=== PATIENT | male | born 1935 | race Caucasian/White ===

== ENCOUNTER 2016-12-10 20:16 | Emergency (ER) | payer MEDICARE, OTHER ==
[~2016-12-10] VITALS: Ht 170.2 cm; Wt 87.9 kg
[~2016-12-10 20:16] MED LIST: AMLO10TA62 PO; ASPI-730 PO; FINA5TAB40 PO; FISH1CAP29 PO; GLUC15002 PO; HYDR-2164 PO; LORA-326 PO; METO-64 PO; MULT-806 PO; NIAC500T68 PO; PRAV40TA44 PO; RANI75TA PO; TERA1CAP PO
[2016-12-10 20:20] VITALS: Ht 170.2 cm; Wt 87.9 kg
--- OUTSIDE RECORDS SUMMARY | 2016-12-10 20:27 | XMS REPORT | Referral Summary ---
Author Author [facility] Organization [facility] Address Unknown Phone Unavailable Care Team Providers Care Rail Signal Mechanic Name Role Phone Arti Delacruz Primary Care Physician [phone] Encounter VC Date(s): 06/27/15 - 06/27/15 [facility] [address] [place] [id number] Discharge Disposition: 01-Home or Self Care Attending Physician: Link Batista MD Admitting Physician: Link Batista MD Vital Signs No data available for this section Problem List Condition Effective Dates Status Health Status Informant Allergic Active rhinitis(Confirmed) Hay fever(Confirmed) < 05/09/14 Resolved Angina/chest < 05/09/14 Resolved pain(Confirmed) Coronary Active arteriosclerosis (disorder)(Confirmed ) Coronary artery < 05/09/14 Resolved disease(Confirmed) Diabetes(Confirmed) < 05/09/14 Resolved Essential Active hypertension (disorder)(Confirmed ) Esophageal < 05/09/14 Resolved reflux(Confirmed) History of < 05/09/14 Resolved measles(Confirmed) History of chronic Active urticaria(Confirmed) Hearing problem Active (finding)(Confirmed) History of colon Active polyps(Confirmed) Hyperlipidemia(Confi < 05/09/14 Resolved rmed) Hypertension(Confirm < 05/09/14 Resolved ed) Obesity(Confirmed) Active patient Prostatism(Confirmed < 05/09/14 Resolved ) Pure Resolved hypercholesterolemia (disorder)(Confirmed ) Chicken < 10/29/15 Resolved pox(Confirmed) Allergies, Adverse Reactions, Alerts Substance Reaction Severity Status meloxicam Hives Active Medications amLODIPine 10 mg oral tablet See Instructions, Take 1/2 tablet by mouth daily, # 45 unknown unit, 2 Refill( s), eRx: [facility], Take 1/2 tablet by mouth daily Start Date: 04/04/15 Status: Ordered aspirin 81 mg oral tablet 81 mg 1 tabs, Oral, Daily, # 30 tabs, 0 Refill(s), other reason (Rx) Start Date: 06/27/15 Status: Ordered Claritin 10 mg, Oral, Daily, as needed for allergy symptoms, 0 Refill(s) Start Date: 05/10/14 Status: Ordered finasteride 5 mg oral tablet See Instructions, Take 1 tablet by mouth at bedtime, # 90 tabs, 1 Refill(s), eRx: [facility], Take 1 tablet by mouth at bedtime Start Date: 10/14/15 Status: Ordered Fish Oil 1000 mg oral capsule 1 caps, Oral, Daily, 0 Refill(s) Start Date: 05/10/14 Status: Ordered Glucometer strips (DME) DME Item [facility], See Instructions, # 1 Each, 1 Refill(s), Pharmacy: [facility] #[id number], [facility], Supply Start Date: 02/28/14 Status: Ordered hydrochlorothiazide 25 mg oral tablet See Instructions, Take 1 tablet by mouth daily, # 90 tabs, 1 Refill(s), eRx: [facility], Take 1 tablet by mouth daily Start Date: 10/14/15 Status: Ordered Metoprolol Tartrate 25 mg oral tablet See Instructions, Take 1 tablet by mouth twice a day, # 180 tabs, 1 Refill(s), eRx: [facility], Take 1 tablet by mouth twice a day Start Date: 10/14/15 Status: Ordered multivitamin Daily, 0 Refill(s) Start Date: 05/10/14 Status: Ordered Niaspan ER 500 mg oral tablet, extended release See Instructions, Take 2 tablets by mouth daily, # 180 tabs, 1 Refill(s), eRx: [facility], Take 2 tablets by mouth daily Start Date: 10/14/15 Status: Ordered Niaspan ER 500 mg oral tablet, extended release 1 tabs, Oral, Bedtime (once a day), 0 Refill(s) Start Date: 05/10/14 Status: Ordered Pravachol 40 mg oral tablet See Instructions, Take 1 tablet by mouth every day, # 90 tabs, 1 Refill(s), eRx : [facility], Take 1 tablet by mouth every day Start Date: 10/14/15 Status: Ordered terazosin 1 mg oral capsule See Instructions, Take 1 capsule by mouth at bedtime, # 90 caps, 1 Refill(s), eRx: [facility], Take 1 capsule by mouth at bedtime Start Date: 10/14/15 Status: Ordered warfarin 2 mg oral tablet 4 mg 2 tabs, Oral, Daily, # 180 tabs, 3 Refill(s), Pharmacy: [facility], 2 tabs Oral Daily Start Date: 10/15/15 Status: Ordered Zantac 150 150 mg, Oral, Daily, Abdominal Cramping, 0 Refill(s) Start Date: 05/10/14 Status: Ordered Results No data available for this section Immunizations Vaccine Date Refusal Reason tetanus/diphth/pertuss (Tdap) adult/adol 10/29/15 influenza virus vaccine, inactivated 08/20/15 influenza virus vaccine, live 07/04/12 pneumococcal 13-valent conjugate vaccine 10/29/15 tetanus-diphth toxoids (Td) adult/adol 02/27/05 Procedures Procedure Date Related Diagnosis Body Site Colonoscopies 2010 WNL 2006 WNL, REPEAT 5YRS. 07/22/11 2003-TUB ADENOMA, REPEAT 2 YRS. cataract left 2010 cataract right 2010 HERNIA 2002 GALL BLADDER W/STONES 1981 Vasectomy 1972 Appendectomy 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
--- OUTSIDE RECORDS SUMMARY | 2016-12-10 20:27 | XMS REPORT | Referral Summary ---
Author Author [facility] Organization [facility] Address Unknown Phone Unavailable Care Team Providers Care And Taxi Instructor Bus Trolley Name Role Phone Arti Delacruz Primary Care Physician [phone] Encounter VC Date(s): 07/16/15 - 07/16/15 [facility] [address] [place] [address] [place] Ojeda [address] Discharge Diagnosis: BPH with obstruction/lower urinary tract symptoms Discharge Diagnosis: Atrial fibrillation Discharge Diagnosis: Type II diabetes mellitus Discharge Diagnosis: GERD without esophagitis Discharge Disposition: 01-Home or Self Care Attending Physician: Kemar Clark JR, MD Admitting Physician: Kemar Clark JR, MD Vital Signs Most recent to 1 oldest [Reference Range]: Peripheral Pulse 72 bpm Rate [60-100 bpm] (07/16/15 9:08 AM) Blood Pressure 116/72 mmHg [90-140/60-90 mmHg] (07/16/15 9:08 AM) Problem List Condition Effective Dates Status Health Status Informant Allergic Active rhinitis(Confirmed) Hay fever(Confirmed) Active Angina/chest Active pain(Confirmed) Coronary Active arteriosclerosis (disorder)(Confirmed ) Coronary artery Active disease(Confirmed) Diabetes(Confirmed) Active Essential Active hypertension (disorder)(Confirmed ) Esophageal Active reflux(Confirmed) History of Active measles(Confirmed) History of chronic Active urticaria(Confirmed) Hearing problem Active (finding)(Confirmed) History of colon Active polyps(Confirmed) Hyperlipidemia(Confi Active rmed) Hypertension(Confirm Active ed) Obesity(Confirmed) Active patient Prostatism(Confirmed Active ) Pure Active hypercholesterolemia (disorder)(Confirmed ) Chicken Active pox(Confirmed) Allergies, Adverse Reactions, Alerts Substance Reaction [...] by mouth at bedtime, # 90 tabs, eRx: [facility], Take 1 tablet by mouth at bedtime Start Date: 07/03/15 Status: Ordered Fish Oil 1000 mg oral capsule 1 caps, Oral, Daily, 0 Refill(s) Start Date: 05/10/14 Status: Ordered Glucometer strips (DME) DME Item [facility]IME, See Instructions, # 1 Each, 1 Refill(s), Pharmacy: [facility] #[id number], LIFETIME, Supply Start Date: 02/28/14 Status: Ordered hydrochlorothiazide 25 mg oral tablet See Instructions, Take 1 tablet by mouth daily, # 90 tabs, eRx: [facility], Take 1 tablet by mouth daily Start Date: 07/03/15 Status: Ordered Metoprolol Tartrate 25 mg oral tablet See Instructions, Take 1 tablet by mouth twice a day, # 180 tabs, eRx: [facility], Take 1 tablet by mouth twice a day Start Date: 07/03/15 Status: Ordered multivitamin Daily, 0 Refill(s) Start Date: 05/10/14 Status: Ordered Niaspan ER 500 mg oral tablet, extended release See Instructions, Take 2 tablets by mouth daily, # 180 tabs, eRx: [facility], Take 2 tablets by mouth daily Start Date: 07/03/15 Status: Ordered Niaspan ER 500 mg oral tablet, extended release 1 tabs, Oral, Bedtime (once a day), 0 Refill(s) Start Date: 05/10/14 Status: Ordered Pravachol 40 mg oral tablet See Instructions, Take 1 tablet by mouth every day, # 90 tabs, eRx: [facility], Take 1 tablet by mouth every day Start Date: 07/03/15 Status: Ordered terazosin 1 mg oral capsule See Instructions, Take 1 capsule by mouth at bedtime, # 90 caps, eRx: [facility], Take 1 capsule by mouth at bedtime Start Date: 07/03/15 Status: Ordered warfarin 2 mg oral tablet 4 mg 2 tabs, Oral, Daily, # 60 tabs, 6 Refill(s), Pharmacy: [facility] # [id number], 2 tabs Oral Daily Start Date: 06/27/15 Status: Ordered Zantac 150 150 mg, Oral, Daily, Abdominal Cramping, 0 Refill(s) Start Date: 05/10/14 Status: Ordered Results No data available for this section Immunizations Vaccine Date Refusal Reason influenza virus vaccine, live 07/04/12 tetanus-diphth toxoids (Td) adult/adol 02/27/05 Procedures Procedure Date Related Diagnosis Body Site Colonoscopies 2010 WNL 2006 WNL, REPEAT 5YRS. 07/22/11 2003-TUB ADENOMA, REPEAT 2 YRS. cataract left 2010 cataract right 2010 HERNIA 2002 GALL BLADDER W/STONES 1981 Vasectomy 1971 Appendectomy 1962 cardiac bypass 3 vessels Social History Social History Type Response Smoking Status Never smoker Assessment and Plan Extracted from: Title: Ambulatory Patient Education Author: Kemar Clark JR, MD Date : 07/16/15 Follow Up With: Where: When: Mc Delacruz [address] [place] [address] Drive; [place] [address] Business (1) Within 3 to 5 days Comments: Follow Up With: Where: When: Kemar [address]; [place] [address] Business (1) In 1 year 07/16/2016 Comments: Extracted from: Title: Office Visit Note Author: Kemar Clark JR, MD Date: 07/16/15 Assessment/Plan 1.BPH with obstruction/lower urinary tract symptoms continue finasteride and Terazosin 2.Atrial fibrillation under the care of his PSA and recently been taking warfarin 3.Type II diabetes mellitus under the care of his PCP taking medications for type II diabetes mellitus 4.GERD without esophagitis continue taking medication for GERD. I would like to see him again in a year. His most recent PSA is 1.4. PSA a week before next visit. Ordered: Office Visit Level 3 Est [address]
--- OUTSIDE RECORDS SUMMARY | 2016-12-10 20:28 | XMS REPORT | Referral Summary ---
Author Author [facility] Organization [facility] Address Unknown Phone Unavailable Care Team Providers Care Coal Washer Tender Name Role Phone Arti Delacruz Primary Care Physician [phone] Encounter VC Date(s): 07/16/15 - 07/16/15 [facility] [address] [place] [address] [place] O[place]eda [address] Discharge Diagnosis: BPH with obstruction/lower urinary [...] 1/2 tablet by mouth daily, # 45 tabs, eRx: [facility], Take 1/2 tablet by mouth daily Start Date: 01/07/16 Status: Ordered aspirin 81 mg oral tablet [...] Instructions, # 1 Each, 1 Refill(s), Pharmacy: [facility] #[id number], [place]ET[facility], Supply Start Date: 02/28/14 Status: Ordered [...] Daily, # 180 tabs, 3 Refill(s), Pharmacy: [facility], 2 tabs Oral Daily Start [...] right 2010 HERNIA 2002 GALL BLADDER W/STONES 1982 Vasectomy 1972 Appendectomy 1963 cardiac bypass 3 vessels Social History Social History Type Response Smoking Status Never smoker Assessment and Plan Extracted from: Title: Ambulatory Patient Education Author: Kemar Clark JR, MD Date : 07/16/15 Follow Up With: Where: When: Mc Delacruz [address] [place] [address] Drive; [place] [address] Business (1) Within 3 to 5 days Comments: Follow Up With: Where: When: Kemar Clark [address] [place] [address] Drive; [place] [address] Business (1) In 1 year [...] visit. Ordered: Office Visit Level 3 Est [address]
--- OUTSIDE RECORDS SUMMARY | 2016-12-10 20:28 | XMS REPORT | Referral Summary ---
Author Author [facility] Organization [facility] Address Unknown Phone Unavailable Care Team Providers Care [employer] Dean Name Role Phone Arti Delacruz Primary Care Physician [phone] Encounter Date(s): 05/29/15 - 05/29/15 [facility] [address] [place] [address] [place] [address]- Discharge Diagnosis: Solar keratosis Discharge Diagnosis: Coronary heart disease Discharge Diagnosis: Effort angina Discharge Diagnosis: Essential hypertension Discharge Diagnosis: H/O coronary artery bypass surgery Discharge Diagnosis: High cholesterol Discharge Disposition: 01-Home or Self Care Attending Physician: Link Batista MD Admitting Physician: Link Batista MD Referring Physician: Mc Delacruz MD Vital Signs Most recent to 1 oldest [Reference Range]: Peripheral Pulse 72 bpm Rate [60-100 bpm] (05/29/15 11:21 AM) Blood Pressure 110/60 mmHg [90-140/60-90 mmHg] (05/29/15 11:21 AM) Problem List Condition Effective Dates Status [...] Instructions, # 1 Each, 1 Refill(s), Pharmacy: [facility] #[id number], [place], Supply Start Date: 02/28/14 Status: Ordered [...] Daily, # 60 tabs, 6 Refill(s), Pharmacy: [facility] # [id number], 2 tabs Oral Daily Start Date: 06/27/15 Status: Ordered Zantac 150 150 mg, Oral, Daily, Abdominal Cramping, 0 Refill(s) Start Date: 05/10/14 Status: Ordered Results No data available for this section Immunizations Vaccine Date Refusal Reason influenza virus vaccine, live 07/04/12 tetanus-diphth toxoids (Td) adult/adol 02/27/05 Procedures Procedure Date Related Diagnosis Body Site Colonoscopies 2010 WNL 2006 WNL, REPEAT 5YRS. 07/22/112002-TUB ADENOMA, REPEAT 2 YRS. cataract left 2010 cataract right 2010 HERNIA 2002 GALL BLADDER W/STONES 1981 Vasectomy 1971 Appendectomy 1962 cardiac bypass 3 vessels Social History Social History Type Response Smoking Status Never smoker Assessment and Plan Extracted from: Title: Office Visit Note Author: Link Batista MD Date: 05/29/15 Assessment/Plan 1.Coronary heart disease Ordered: Internal Referral to Dermatology Request for Service - Misc. Return to Clinic 2.H/O coronary artery bypass surgery Ordered: Internal Referral to Dermatology Request for Service - Misc. Return to Clinic 3.Effort angina Discussion overall, this gentleman seems to be getting along very well. In view of his increasing symptoms of angina, we will do a stress test this year. He is to call us if he has symptomsof decliningin the meantime. Time of visit about 25 minutes. Ordered: Internal Referral to Dermatology Request for Service - Misc. Return to Clinic 4.High cholesterol Ordered: Internal Referral to Dermatology Request for Service - Misc. Return to Clinic 5.Essential hypertension Ordered: Internal Referral to Dermatology Request for Service - Misc. Return to Clinic 6.Solar keratosis Ordered: Internal Referral to Dermatology Request for Service - Misc. Return to Clinic Referrals to Other Providers Referred by: Link Batista MD solar keratosis Referred by: Link Batista MD
--- OUTSIDE RECORDS SUMMARY | 2016-12-10 20:28 | XMS REPORT | Referral Summary ---
Author Author [facility] Organization [facility] Address Unknown Phone Unavailable Care Team Providers Care Bicycle Subassembler Name Role Phone Arti Delacruz Primary Care Physician [phone] Encounter Date(s): 07/03/15 - 07/03/15 [facility] [address] [place] [address] [place] [id number] Discharge Diagnosis: H/O coronary artery bypass surgery Discharge Diagnosis: Atrial flutter Discharge Diagnosis: Coronary heart disease Discharge Disposition: 01-Home or Self Care Attending Physician: Link Batista MD Admitting Physician: Link Batista MD Referring Physician: Mc Delacruz MD Vital Signs Most recent to 1 oldest [Reference Range]: Peripheral Pulse 76 bpm Rate [60-100 bpm] (07/03/15 11:54 AM) Blood Pressure 134/76 mmHg [90-140/60-90 mmHg] (07/03/15 11:54 AM) Problem List Condition Effective Dates Status [...] Instructions, # 1 Each, 1 Refill(s), Pharmacy: [facility] #[id number], [facility], Supply Start Date: 02/28/14 Status: Ordered [...] Daily, # 180 tabs, 3 Refill(s), Pharmacy: [facility], 2 tabs Oral Daily Start [...] Visit Note Author: Link Batista MD Date: 07/03/15 Assessment/Plan 1.Atrial flutter 2.Coronary heart disease 3.H/O coronary artery bypass surgery Discussion:The patient was accompanied by his on this visit. We reviewedthe cardiac conduction system and discussed the atrial fibrillation and atrial flutter. We advised him that his heart rate is satisfactorily controlled on his current medications. We discussed the importance of anticoagulant therapy to reduce the chance of systemicor central embolization. We also discussed some elements of anticoagulant therapy, reviewing information fromthe visit with child. Time of visit today approximately 40 minutes. A follow-up visit was arranged. He was encouraged to call any time as necessary. We will continue to beinvolved in his anticoagulation. I thought that his rhythm had gone back to normal butAn EKG demonstrates that it is atrial flutter with 4to1 conduction
--- OUTSIDE RECORDS SUMMARY | 2016-12-10 20:28 | XMS REPORT | Referral Summary ---
Author Author [facility] Organization [facility] Address Unknown Phone Unavailable Care Team Providers Care Medical Lab Technician Name Role Phone Arti Delacruz Primary Care Physician [phone] Encounter [facility] [id number] Date(s): 05/17/15 - 05/17/15 [facility], [address] [place] [address] Discharge Diagnosis: Essential hypertension Discharge Diagnosis: Hyperlipidemia Discharge Diagnosis: Coronary arteriosclerosis Discharge Diagnosis: Diabetes Discharge Disposition: 01-Home or Self Care Attending Physician: Mc Delacruz MD Admitting Physician: Mc Delacruz MD Referring Physician: Mc Delacruz MD Vital Signs Most recent to 1 oldest [Reference Range]: Temperature Tympanic 36.1 degC [36.6-38.1 degC] *LOW* (05/17/15 8:25 AM) Peripheral Pulse 64 bpm Rate [60-100 bpm] (05/17/15 8:25 AM) Blood Pressure 116/50 mmHg [90-140/60-90 mmHg] (05/17/15 8:25 AM) Problem List Condition Effective Dates Status [...] Instructions, # 1 Each, 1 Refill(s), Pharmacy: [facility] #[id number], [place], Supply Start Date: 02/28/14 Status: Ordered [...] smoker Assessment and Plan Extracted from: Title: CDM DM Author: Mc Delacruz MD Date: 05/17/15 Assessment/Plan Coronary arteriosclerosis Overall seems to have stable angina associated with exertion. We discussed the importance of immediate follow-up if this develops a pattern suggestive of unstable angina. Otherwise follow-up with Dr. Batista as already planned. Diabetes Continue present care. Essential hypertension Continue current care. Hyperlipidemia Continue current medications. Encourage lifestyle efforts. Follow-up 3 months. Labs anticipated that time to include A1c and BMP.
--- OUTSIDE RECORDS SUMMARY | 2016-12-10 20:28 | XMS REPORT | Referral Summary ---
Author Author [facility] Organization [facility] Address Unknown Phone Unavailable Care Team Providers Care [employer] Manager Name Role Phone Arti Delacruz Primary Care Physician [phone] Encounter Date(s): 05/29/15 - 05/29/15 [facility] [address] [place] [address] [place] [address]- Discharge Diagnosis: Solar keratosis Discharge Diagnosis: Coronary [...] Instructions, # 1 Each, 1 Refill(s), Pharmacy: [facility] #[id number], [place], Supply Start Date: 02/28/14 Status: Ordered [...] Daily, # 60 tabs, 6 Refill(s), Pharmacy: [facility] # [id number], 2 tabs Oral Daily Start Date: 06/27/15 [...]
--- OUTSIDE RECORDS SUMMARY | 2016-12-10 20:28 | XMS REPORT | Referral Summary ---
Author Author [facility] Organization [facility] Address Unknown Phone Unavailable Care Team Providers Care Gas Welder Apprentice Name Role Phone Arti Delacruz Primary Care Physician [phone] Encounter Date(s): 05/29/15 - 05/29/15 [facility] [address] [place] [address] [place] Ojeda [id number] Discharge Diagnosis: Solar keratosis Discharge Diagnosis: Coronary heart disease Discharge Diagnosis: Effort angina Discharge Diagnosis: Essential hypertension Discharge Diagnosis: H/O coronary artery bypass surgery Discharge Diagnosis: High cholesterol Discharge Disposition: -Home or Self Care Attending Physician: Link Batista [...] Pure Resolved hypercholesterolemia (disorder)(Confirmed ) Chicken < 2/2/16 Resolved pox(Confirmed) Allergies, Adverse Reactions, Alerts Substance [...] Instructions, # 1 Each, 1 Refill(s), Pharmacy: [facility] #[id number], [place], Supply Start Date: 02/28/14 Status: Ordered [...] Daily, # 180 tabs, 3 Refill(s), Pharmacy: [facility], 2 tabs Oral Daily Start [...]
--- OUTSIDE RECORDS SUMMARY | 2016-12-10 20:28 | XMS REPORT | Referral Summary ---
Author Author [facility] Organization [facility] Address Unknown Phone Unavailable Care Team Providers Care Joiners Supervisor Name Role Phone Arti Delacruz Primary Care Physician [phone] Encounter [facility] [id number] Date(s): 07/03/15 - 07/03/15 [facility] [address] [place] [address] [place] Ojeda [id number] Discharge Diagnosis: H/O coronary artery bypass surgery [...] Instructions, # 1 Each, 1 Refill(s), Pharmacy: [facility] #[id number], [place], Supply Start Date: 02/28/14 Status: Ordered [...] Daily, # 60 tabs, 6 Refill(s), Pharmacy: [facility] # [id number], 2 tabs Oral Daily Start Date: 06/27/15 Status: Ordered Zantac 150 150 mg, Oral, Daily, Abdominal Cramping, 0 Refill(s) Start Date: 05/10/14 Status: Ordered Results No data available for this section Immunizations Vaccine Date Refusal Reason influenza virus vaccine, live 07/04/12 tetanus-diphth toxoids (Td) adult/adol 02/27/05 Procedures Procedure Date Related Diagnosis Body Site Colonoscopies 2010 WNL 2005 WNL, REPEAT 5YRS. 07/22/11 2003-TUB ADENOMA, REPEAT [...]
--- OUTSIDE RECORDS SUMMARY | 2016-12-10 20:28 | XMS REPORT | Referral Summary ---
Author Organization Unknown Address Unknown Phone Unavailable Care Team Providers Care Airport Control Operator Name Role Phone Arti Delacruz Primary Care Physician [phone] Encounter VC MORAN [id number] Date(s): 11/15/14 - 11/15/14 [facility], [place], Family Medicine [address] [place] [address] [place] Ojeda [id number] Discharge Diagnosis: Diabetes Discharge Diagnosis: Essential hypertension Discharge Diagnosis: Hyperlipidemia Discharge Diagnosis: Coronary arteriosclerosis Discharge Disposition: Home or Self Care Attending Physician: Mc Delacruz MD Admitting Physician: Mc Delacruz MD Vital Signs Most recent to 1 oldest [Reference Range]: Temperature Tympanic 36.1 degC [36.6-38.1 degC] *LOW* (11/15/14 8:41 AM) Peripheral Pulse 72 bpm Rate [60-100 bpm] (11/15/14 8:41 AM) Blood Pressure 132/68 mmHg [90-140/60-90 mmHg] (11/15/14 8:41 AM) Problem List Condition Effective Dates Status Health Status Informant Allergic Active rhinitis(Confirmed) Hay fever(Confirmed) Active Angina/chest Active pain(Confirmed) Coronary Active arteriosclerosis (disorder)(Confirmed ) Coronary artery Active disease(Confirmed) Diabetes(Confirmed) Active Essential Active hypertension (disorder)(Confirmed ) Esophageal Active reflux(Confirmed) History of Active measles(Confirmed) History of chronic Active urticaria(Confirmed) Hearing problem Active (finding)(Confirmed) History of colon Active polyps(Confirmed) Hyperlipidemia(Confi Active rmed) Hypertension(Confirm Active ed) Prostatism(Confirmed Active ) Pure Active hypercholesterolemia (disorder)(Confirmed ) Chicken Active pox(Confirmed) Allergies, Adverse Reactions, Alerts Substance Reaction Severity Status meloxicam Hives Active Medications amLODIPine 10 mg oral tablet See Instructions, Take 1/2 tablet by mouth daily, # 45 tabs, 2 Refill(s), eRx: [facility], Take 1/2 tablet by mouth daily Special Instructions: Take 1/2 tablet by mouth daily Start Date: 06/21/14 Status: Ordered aspirin 325 mg, Oral, Daily, 0 Refill(s) Start Date: 05/10/14 Status: Ordered Claritin 10 mg, Oral, Daily, as needed for allergy symptoms, 0 Refill(s) Start Date: 05/10/14 Status: Ordered finasteride 5 mg oral tablet See Instructions, Take 1 tablet by mouth at bedtime, # 90 unknown unit, 2 Refill(s), eRx: [facility], Take 1 tablet by mouth at bedtime Special Instructions: Take 1 tablet by mouth at bedtime Start Date: 06/21/14 Status: Ordered Fish Oil 1000 mg oral capsule 1 caps, Oral, Daily, 0 Refill(s) Start Date: 05/10/14 Status: Ordered Glucometer strips (DME) DME Item LIFETIME, See Instructions, # 1 Each, 1 Refill(s), Pharmacy: [facility] #[id number], LIFETIME, Supply Special Instructions: LIFETIME Start Date: 02/28/14 Status: Ordered hydrochlorothiazide 25 mg oral tablet See Instructions, Take 1 tablet by mouth daily, # 90 tabs, 2 Refill(s), eRx: [facility], Take 1 tablet by mouth daily Special Instructions: Take 1 tablet by mouth daily Start Date: 06/21/14 Status: Ordered Metoprolol Tartrate 25 mg oral tablet See Instructions, Take 1 tablet by mouth twice a day, # 180 tabs, 2 Refill(s), eRx: [facility], Take 1 tablet by mouth twice a day Special Instructions: Take 1 tablet by mouth twice a day Start Date: 06/21/14 Status: Ordered multivitamin Daily, 0 Refill(s) Start Date: 05/10/14 Status: Ordered Niaspan ER 500 mg oral tablet, extended release 1 tabs, Oral, Bedtime (once a day), 0 Refill(s) Start Date: 05/10/14 Status: Ordered Pravachol 40 mg oral tablet See Instructions, Take 1 tablet by mouth every day, # 90 unknown unit, 2 Refill (s), eRx: [facility], Take 1 tablet by mouth every day Special Instructions: Take 1 tablet by mouth every day Start Date: 06/21/14 Status: Ordered terazosin 1 mg oral capsule See Instructions, Take 1 capsule by mouth at bedtime, # 90 unknown unit, 2 Refill(s), eRx: [facility], Take 1 capsule by mouth at bedtime Special Instructions: Take 1 capsule by mouth at bedtime Start Date: 06/21/14 Status: Ordered Zantac 150 150 mg, Oral, Daily, Abdominal Cramping, 0 Refill(s) Start Date: 05/10/14 Status: Ordered Results Chemistry Most recent to 1 oldest [Reference Range]: Sodium Lvl [135-144 141 mEq/L mEq/L] (11/15/14 9:25 AM) Potassium Lvl 4.2 mEq/L [3.5-5.2 mEq/L] (11/15/14 9:25 AM) Chloride [99-111 108 mEq/L mEq/L] (11/15/14 9:25 AM) CO2 [23-31 mEq/L] 22 mEq/L *LOW* (11/15/14 9:25 AM) AGAP [3-20] 11 (11/15/14 9:25 AM) BUN [8-26 mg/dL] 14 mg/dL (11/15/14 9:25 AM) Glucose Lvl [70-99 142 mg/dL mg/dL] *HI* (11/15/14 9:25 AM) Creatinine Lvl 1.08 mg/dL [0.72-1.25 mg/dL] (11/15/14 9:25 AM) eGFR [>60 mL/min] >60 mL/min 1 (11/15/14 9:25 AM) Calcium Lvl 9.5 mg/dL [8.9-10.5 mg/dL] (11/15/14 9:25 AM) Chol [0-199 mg/dL] 156 mg/dL (11/15/14 9:25 AM) Trig [0-149 mg/dL] 265 mg/dL *HI* (11/15/14 9:25 AM) HDL [40-84 mg/dL] 31 mg/dL *LOW* (11/15/14 9:25 AM) LDL [0-130 mg/dL] 72 mg/dL (11/15/14 9:25 AM) VLDL Cholesterol 53 mg/dL [0-28 mg/dL] *HI* (11/15/14 9:25 AM) Cardiac Risk 5.0 [0.0-5.7] (11/15/14 9:25 AM) 1Result Comment: Multiply eGFR results by 1.21 for race. Immunizations Vaccine Date Refusal Reason influenza virus [...] and Plan Extracted from: Title: Office Visit Note-CDM Author: Mc Delacruz MD Date: 11/15/14 Assessment/Plan Coronary arteriosclerosis Stable. I did advise that if he has recurrent chest pressure or heart symptoms, though should be evaluated in time. Note that he does have follow-up scheduled with Dr. Batista in the fall. Diabetes Stable. Continue present care. I did encourage him to check blood sugars a bit more often, particularly during times of illness. Essential hypertension Increase hydrochlorothiazide to daily use and monitor blood pressures. Ordered: Basic Metabolic Panel Hyperlipidemia Due for fasting lipids today. Ordered: Lipid Panel Follow-up in 3 months/sooner if needed. Labs at that time to include A1c.
--- OUTSIDE RECORDS SUMMARY | 2016-12-10 20:28 | XMS REPORT | Referral Summary ---
Author Author [facility] Organization [facility] Address Unknown Phone Unavailable Care Team Providers Care Merchandise Stocker Name Role Phone Arti Delacruz Primary Care Physician [phone] Encounter Date(s): 05/29/15 - 05/29/15 [facility] [place] [address] [place] [address] [place] Ojeda [address]- Discharge Diagnosis: Solar keratosis Discharge Diagnosis: Coronary [...] Instructions, # 1 Each, 1 Refill(s), Pharmacy: [facility] #[id number], LIFETIME, Supply Start Date: 02/28/14 Status: Ordered [...] Daily, # 60 tabs, 6 Refill(s), Pharmacy: [facility] # [id number], 2 tabs Oral Daily Start Date: 06/27/15 [...]
--- OUTSIDE RECORDS SUMMARY | 2016-12-10 20:28 | XMS REPORT | Referral Summary ---
Author Author [facility] Organization 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 Discharge Diagnosis: BPPV (benign paroxysmal positional vertigo) Discharge Diagnosis: Hyperlipidemia Discharge Disposition: 01-Home or Self Care Attending Physician: Mc Delacruz MD Admitting Physician: Mc Delacruz MD Vital Signs Most recent to 1 oldest [Reference Range]: Temperature Tympanic 36.9 degC [36.6-38.1 degC] (02/12/15 11:01 AM) Peripheral Pulse 72 bpm Rate [60-100 bpm] (02/12/15 11:01 AM) Respiratory Rate 18 br/min [14-20 br/min] (02/12/15 11:01 AM) Blood Pressure 112/60 mmHg [90-140/60-90 mmHg] (02/12/15 11:01 AM) Problem List Condition Effective Dates Status [...] Instructions, # 1 Each, 1 Refill(s), Pharmacy: [facility] #[id number], LIFETIME, Supply Start Date: 02/28/14 Status: Ordered [...] Daily, # 60 tabs, 6 Refill(s), Pharmacy: [facility] # [id number], 2 tabs Oral Daily Start Date: 06/27/15 Status: Ordered Zantac 150 150 mg, Oral, Daily, Abdominal Cramping, 0 Refill(s) Start Date: 05/10/14 Status: Ordered Results No data available for this section Immunizations Vaccine Date Refusal Reason influenza virus vaccine, inactivated 08/20/15 influenza virus vaccine, live 07/04/12 tetanus-diphth toxoids [...] smoker Assessment and Plan Extracted from: Title: CDM/diabetes Author: cM Delacruz MD Date: 02/13/15 Assessment/Plan BPPV (benign paroxysmal positional vertigo) Controlled type 2 diabetes with neuropathy Coronary arteriosclerosis Essential hypertension Hyperlipidemia Overall stable. Encouraged weight loss and exercise. Follow-up again in 3 months see and urine microalbumin at that visit. Extracted from: Title: Ambulatory Patient Education Author: Mc Delacruz MD Date: Family Medicine Benign Positional Vertigo Vertigo means you feel like you or your surroundings are moving when they are not. Benign positional vertigo is the most common form of vertigo. Benign means that the cause of your condition is not serious. Benign positional vertigo is more common in older adults. CAUSES Benign positional vertigo is the result of an upset in the labyrinth system. This is an area in the middle ear that helps control your balance. This may be caused by a viral infection, head injury, or repetitive motion. However, often no specific cause is found. SYMPTOMS Symptoms of benign positional vertigo occur when you move your head or eyes in different directions. Some of the symptoms may include: Loss of balance and falls. Vomiting. Blurred vision. Dizziness. Nausea. Involuntary eye movements (nystagmus ). DIAGNOSIS Benign positional vertigo is usually diagnosed by physical exam. If the specific cause of your benign positional vertigo is unknown, your caregiver may perform imaging tests, such as magnetic resonance imaging (MRI) or computed tomography (CT). TREATMENT Your caregiver may recommend movements or procedures to correct the benign positional vertigo. Medicines such as meclizine, benzodiazepines, and medicines for nausea may be used to treat your symptoms. In rare cases, if your symptoms are caused by certain conditions that affect the inner ear, you may need surgery. HOME CARE INSTRUCTIONS Follow your caregiver's instructions. Move slowly. Do not make sudden body or head movements. Avoid driving. Avoid operating heavy machinery. Avoid performing any tasks that would be dangerous to you or others during a vertigo episode. Drink enough fluids to keep your urine clear or pale yellow. SEEK IMMEDIATE MEDICAL CARE IF: You develop problems with walking, weakness, numbness, or using your arms, hands, or legs. You have difficulty speaking. You develop severe headaches. Your nausea or vomiting continues or gets worse. You develop visual changes. Your family or friends notice any behavioral changes. Your condition gets worse. You have a fever. You develop a stiff neck or sensitivity to light. MAKE SURE YOU: Understand these instructions. Will watch your condition. Will get help right away if you are not doing well or get worse. Document Released: 06/21/2007 Document Revised: 12/05/2012 Document Reviewed: [facility] Patient Information 2014 [employer] [facility]. No follow up information was provided.
--- OUTSIDE RECORDS SUMMARY | 2016-12-10 20:28 | XMS REPORT | Referral Summary ---
Author Author [facility] Organization [facility] Address Unknown Phone Unavailable Care Team Providers Care Grease Remover Name Role Phone Arti Delacruz Primary Care Physician [phone] Encounter Date(s): 05/29/15 - 05/29/15 [facility] [place] [address] [place] [address] [place] Ojeda [address]- Discharge Diagnosis: Solar keratosis Discharge Diagnosis: Coronary [...] Instructions, # 1 Each, 1 Refill(s), Pharmacy: [facility] #[id number], LIFETIME, Supply Start Date: 02/28/14 Status: Ordered [...] Daily, # 60 tabs, 6 Refill(s), Pharmacy: [facility] # [id number], 2 tabs Oral Daily Start Date: 06/27/15 [...]
--- OUTSIDE RECORDS SUMMARY | 2016-12-10 20:28 | XMS REPORT | Referral Summary ---
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 Ordered: Office Visit Level 3 Est 19350
--- OUTSIDE RECORDS SUMMARY | 2016-12-10 20:29 | XMS REPORT | Referral Summary ---
Author Author [facility] Organization [facility] Address Unknown Phone Unavailable Care Team Providers Care Framing Carpenter Name Role Phone Arti Delacruz Primary Care Physician [phone] Encounter Date(s): 02/27/16 - 02/27/16 [facility] [address] [place] Ojeda [address] Discharge Diagnosis: Essential hypertension Discharge Diagnosis: Hyperlipidemia Discharge Diagnosis: Coronary arteriosclerosis Discharge Diagnosis: DM II (diabetes mellitus, type II), controlled Discharge Diagnosis: Atrial flutter Discharge Disposition: -Home or Self Care Attending Physician: Mc Delacruz MD Admitting Physician: Mc Delacruz MD Vital Signs Most recent to 1 oldest [Reference Range]: Peripheral Pulse 72 bpm Rate [60-100 bpm] (02/27/16 10:05 AM) Respiratory Rate 18 br/min [14-20 br/min] (02/27/16 10:05 AM) Blood Pressure 118/64 mmHg [90-140/60-90 mmHg] (02/27/16 10:05 AM) SpO2 95 % (02/27/16 10:05 AM) Problem List Condition Effective Dates Status Health Status Informant Allergic Active rhinitis(Confirmed) Hay fever(Confirmed) < 05/09/14 Resolved Atrial Active flutter(Confirmed) Angina/chest < 05/09/14 Resolved pain(Confirmed) Coronary Active arteriosclerosis (disorder)(Confirmed ) Coronary artery < 05/09/14 Resolved disease(Confirmed) Diabetes(Confirmed) < 05/09/14 Resolved Essential Active hypertension (disorder)(Confirmed ) Esophageal < 05/09/14 Resolved reflux(Confirmed) History of < 05/09/14 Resolved measles(Confirmed) History of chronic Active urticaria(Confirmed) Hearing problem Active (finding)(Confirmed) History of colon Active polyps(Confirmed) Hyperlipidemia(Confi Active rmed) Hypertension(Confirm < 05/09/14 Resolved ed) Obesity(Confirmed) Active patient Prostatism(Confirmed < 05/09/14 Resolved ) Pure Resolved hypercholesterolemia (disorder)(Confirmed ) DM II (diabetes Active mellitus, type II), controlled(Confirmed ) Chicken < 10/29/15 Resolved pox(Confirmed) Allergies, [...] Instructions, # 1 Each, 1 Refill(s), Pharmacy: [facility] #[id number], LIFETIME, Supply Start Date: 02/28/14 Status: Ordered [...] smoker Assessment and Plan Extracted from: Title: PITER DM Author: Mc Delacruz MD Date: 02/27/16 Impression and Plan Diagnosis Coronary arteriosclerosis (XZQ90-WY I25.10, Discharge, Medical). Atrial flutter (TIZ17-YP I48.3, Discharge, Medical). DM II (diabetes mellitus, type II), controlled (CHO66-FG E11.9, Discharge, Medical). Essential hypertension (JHJ04-ID I10, Discharge, Medical). Hyperlipidemia (BDV18-IX E78.5, Discharge, Medical). Plan: Overall he is doing well. Continue with current care. Will continue to follow up with Dr. Batista. Advised to follow with eye doctor sooner than May due to some report of perceived cloudiness in his eyes. Followup in 6 months or sooner if needed. Labs to be drawn prior to the next visit.. Orders Orders (Selected) Outpatient Orders Future (On Hold) Albumin/Creatinine Ratio, Urine: BMP: Hgb A1c: PT/INR: .
--- OUTSIDE RECORDS SUMMARY | 2016-12-10 20:29 | XMS REPORT | Referral Summary ---
Author Author [facility] Organization [facility] Address Unknown Phone Unavailable Care Team Providers Care Authorization Specialist Name Role Phone Arti Delacruz Primary Care Physician [phone] Encounter VC Date(s): 07/16/15 - 07/16/15 [facility] [address] [place] [address] [place] Ojeda [address] Discharge Diagnosis: BPH with obstruction/lower [...] Instructions, # 1 Each, 1 Refill(s), Pharmacy: [facility] #[id number], LIFETIME, Supply Start Date: 02/28/14 Status: Ordered [...] Daily, # 60 tabs, 6 Refill(s), Pharmacy: [facility] # [id number], 2 tabs Oral Daily Start Date: 06/27/15 [...] Follow Up With: Where: When: Mc Delacruz [address] [place] [address] Drive; [place] [address] Business (1) Within 3 to 5 days Comments: Follow Up With: Where: When: Kemar Michel[address]; [place] [address] Business (1) In 1 year [...] visit. Ordered: Office Visit Level 3 Est [address]60
--- OUTSIDE RECORDS SUMMARY | 2016-12-10 20:29 | XMS REPORT | Referral Summary ---
Author Author [facility] Organization [facility] Address Unknown Phone Unavailable Care Team Providers Care Strategic Partnership Specialist Name Role Phone Arti Delacruz Primary Care Physician [phone] Encounter VC Date(s): 07/03/15 - 07/03/15 [facility] [place] [address] [place] [id number] Discharge Disposition: 01-Home or Self Care Attending [...] Each, 1 Refill(s), Pharmacy: [facility] #[id number], LIFETIME, Supply Start Date: 02/28/14 Status: Ordered [...] GALL BLADDER W/STONES 1981 Vasectomy 1971 Appendectomy 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
--- OUTSIDE RECORDS SUMMARY | 2016-12-10 20:29 | XMS REPORT | Referral Summary ---
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 Ordered: Office Visit Level 3 Est [address]3216
--- OUTSIDE RECORDS SUMMARY | 2016-12-10 20:29 | XMS REPORT | Referral Summary ---
Author Author [facility] Organization [facility] Address Unknown Phone Unavailable Care Team Providers Care Service Captain Name Role Phone Arti Delacruz Primary Care Physician [phone] Encounter Date(s): 02/12/15 - 02/12/15 [facility] [address] [place] [address] Discharge Diagnosis: Essential hypertension Discharge [...] Instructions, # 1 Each, 1 Refill(s), Pharmacy: [facility] #[id number], LIFETIME, Supply Start Date: 02/28/14 Status: Ordered [...] Daily, # 60 tabs, 6 Refill(s), Pharmacy: [facility] # [id number], 2 tabs Oral Daily Start Date: 06/27/15 [...] and Plan Extracted from: Title: CDM/diabetes Author: Mc Delacruz MD Date: 02/13/15 Assessment/Plan BPPV (benign [...] Released: 06/21/2007 Document Revised: 12/05/2012 Document Reviewed: [facility] Patient Information 2014 [employer] [facility]. No follow up information was provided.
--- OUTSIDE RECORDS SUMMARY | 2016-12-10 20:29 | XMS REPORT | Referral Summary ---
Author Author [facility] Organization [facility] Address Unknown Phone Unavailable Care Team Providers Care Barrel Lathe Operator Name Role Phone Arti Delacruz Primary Care Physician [phone] Encounter VC Date(s): 06/27/15 - 06/27/15 [facility] [address] [place] [address] Discharge Disposition: 01-Home or Self Care Attending Physician: Link Batista MD Admitting Physician: Link Batista MD Referring Physician: Mc Delacruz MD Vital Signs Most recent to 1 oldest [Reference Range]: Peripheral Pulse 69 bpm Rate [60-100 bpm] (06/27/15 10:37 AM) Blood Pressure 140/83 mmHg [90-140/60-90 mmHg] (06/27/15 10:37 AM) Problem List Condition Effective Dates Status [...] mouth at bedtime, # 90 unknown unit, eRx: [facility], Take 1 tablet by mouth at bedtime Start Date: 04/04/15 Status: Ordered Fish Oil 1000 mg oral capsule 1 caps, Oral, Daily, 0 Refill(s) Start Date: 05/10/14 Status: Ordered Glucometer strips (DME) DME Item LIFETIME, See Instructions, # 1 Each, 1 Refill(s), Pharmacy: [facility] #[id number], LIFETIME, Supply Start Date: 02/28/14 Status: Ordered hydrochlorothiazide 25 mg oral tablet See Instructions, Take 1 tablet by mouth daily, # 90 unknown unit, eRx: [facility], Take 1 tablet by mouth daily Start Date: 04/04/15 Status: Ordered Metoprolol Tartrate 25 mg oral tablet See Instructions, Take 1 tablet by mouth twice a day, # 180 unknown unit, eRx: [facility], Take 1 tablet by mouth twice a day Start Date: 04/04/15 Status: Ordered multivitamin Daily, 0 Refill(s) Start Date: 05/10/14 Status: Ordered Niaspan ER 500 mg oral tablet, extended release 1 tabs, Oral, Bedtime (once a day), 0 Refill(s) Start Date: 05/10/14 Status: Ordered Pravachol 40 mg oral tablet See Instructions, Take 1 tablet by mouth every day, # 90 unknown unit, eRx: [facility], Take 1 tablet by mouth every day Start Date: 04/04/15 Status: Ordered terazosin 1 mg oral capsule See Instructions, Take 1 capsule by mouth at bedtime, # 90 unknown unit, eRx: [facility], Take 1 capsule by mouth at bedtime Start Date: 04/04/15 Status: Ordered warfarin 2 mg oral tablet 4 mg 2 tabs, Oral, Daily, # 60 tabs, 6 Refill(s), Pharmacy: [facility] # [id number], 2 tabs Oral Daily Start Date: 06/27/15 [...]
--- OUTSIDE RECORDS SUMMARY | 2016-12-10 20:29 | XMS REPORT | Referral Summary ---
Author Author [facility] Organization [facility] Address Unknown Phone Unavailable Care Team Providers Care Horse Rancher Name Role Phone Arti Delacruz Primary Care Physician [phone] Encounter [facility] Date(s): 10/09/15 - 10/09/15 [facility] [address] [place] [address] [place] Ojeda [id number] Discharge Diagnosis: Essential hypertension Discharge Diagnosis: Coronary heart disease Discharge Diagnosis: Atrial flutter Discharge Disposition: 01-Home or Self Care Attending Physician: Link Batista MD Admitting Physician: Link Batista MD Referring Physician: Mc Delacruz MD Vital Signs Most recent to 1 oldest [Reference Range]: Peripheral Pulse 76 bpm Rate [60-100 bpm] (10/09/15 10:48 AM) Blood Pressure 130/60 mmHg [90-140/60-90 mmHg] (10/09/15 10:48 AM) Problem List Condition Effective Dates Status [...] Instructions, # 1 Each, 1 Refill(s), Pharmacy: [facility] #[id number], LIFETIME, Supply Start Date: 02/28/14 Status: Ordered [...] Daily, # 60 tabs, 6 Refill(s), Pharmacy: [facility] # [id number], 2 tabs Oral Daily Start Date: 06/27/15 [...] Visit Note Author: Link Batista MD Date: 10/09/15 Assessment/Plan 1.Coronary heart disease 2.Atrial flutter 3.Essential hypertension Discussion: Overall, this man seems to be doing extremely well and I didn't make any changes in his therapy. He did have questions about dental work. I advised him thatdental work frequently can be done withoutstopping anticoagulation. In view, however, of his atrial flutter status and his general stability, if the dentist feels better if hisCoumadin isinterrupted, that probably is negotiable. Apparently, his dentist has had health problems andis trying to arrange his schedule very carefully.
--- OUTSIDE RECORDS SUMMARY | 2016-12-10 20:29 | XMS REPORT | Referral Summary ---
Author Author [facility] Organization [facility] Address Unknown Phone Unavailable Care Team Providers Care Brake Liner Name Role Phone Arti Delacruz Primary Care Physician [phone] Encounter [facility] [id number] Date(s): 06/27/15 - 06/27/15 [facility] [address] [place] [address] Discharge Diagnosis: Atrial flutter Discharge Diagnosis: Chronic anticoagulation Discharge Disposition: 01-Home or Self Care Attending Physician: Julian Dominguez Admitting Physician: Julian Dominguez Referring Physician: Mc Delacruz MD Vital Signs Most recent to 1 oldest [Reference Range]: Peripheral Pulse 68 bpm Rate [60-100 bpm] (06/27/15 2:14 PM) Blood Pressure 112/64 mmHg [90-140/60-90 mmHg] (06/27/15 2:14 PM) Problem List Condition Effective Dates Status Health [...] # 1 Each, 1 Refill(s), Pharmacy: [facility] #[id number], LIFETIME, Supply Start Date: 02/28/14 Status: Ordered [...] Refill(s) Start Date: 05/10/14 Status: Ordered Results Hematology Most recent to 1 oldest [Reference Range]: WBC [4.8-10.8 7.0 10*3/uL 10*3/uL] (06/27/15 3:29 PM) RBC [4.60-6.20] 4.73 (06/27/15 3:29 PM) Hgb [14.0-18.0 15.0 gm/dL gm/dL] (06/27/15 3:29 PM) Hct [42.0-52.0 %] 42.8 % (06/27/15 3:29 PM) MCV [82.0-99.0 fL] 90.5 fL (06/27/15 3:29 PM) MCH [27.0-32.0 pg] 31.7 pg (06/27/15 3:29 PM) MCHC [32.0-36.0 35.0 gm/dL gm/dL] (06/27/15 3:29 PM) RDW [11.5-14.5 %] 13.8 % (06/27/15 3:29 PM) Platelet [150-400 279 10*3/uL 10*3/uL] (06/27/15 3:29 PM) MPV [8.8-14.8 fL] 10.7 fL (06/27/15 3:29 PM) Coagulation Most recent to 1 oldest [Reference Range]: PT Venous (06/27/15 3:29 PM) INR [0.8-1.2] 1.1 1 (06/27/15 3:29 PM) 1Result Comment: Normal (no anticoagulant): 0.8 - 1.2 Units Routine Therapeutic Range: 2.0 - 3.0 Units High Risk Therapeutic Range: 2.5 - 3.5 Units Chemistry Most recent to 1 oldest [Reference Range]: Sodium Lvl [135-144 143 mEq/L mEq/L] (06/27/15 3:29 PM) Potassium Lvl 4.0 mEq/L [3.5-5.2 mEq/L] (06/27/15 3:29 PM) Chloride [99-111 107 mEq/L mEq/L] (06/27/15 3:29 PM) CO2 [23-31 mEq/L] 29 mEq/L (06/27/15 3:29 PM) AGAP [3-20] 7 (06/27/15 3:29 PM) BUN [8-26 mg/dL] 17 mg/dL (06/27/15 3:29 PM) Glucose Lvl [70-99 111 mg/dL mg/dL] *HI* (06/27/15 3:29 PM) Creatinine Lvl 1.02 mg/dL [0.72-1.25 mg/dL] (06/27/15 3:29 PM) eGFR [>60 mL/min] >60 mL/min 1 (06/27/15 3:29 PM) Calcium Lvl 9.5 mg/dL [8.9-10.5 mg/dL] (06/27/15 3:29 PM) Albumin Lvl [3.4-4.8 4.1 gm/dL gm/dL] (06/27/15 3:29 PM) Total Protein 6.8 gm/dL [6.2-8.1 gm/dL] (06/27/15 3:29 PM) Globulin [1.8-4.0 2.7 gm/dL gm/dL] (06/27/15 3:29 PM) ALT [0-55 U/L] 14 U/L (06/27/15 3:29 PM) AST [5-34 U/L] 21 U/L (06/27/15 3:29 PM) Alk Phos [40-150 58 U/L U/L] (06/27/15 3:29 PM) Bili Total [0.2-1.2 0.9 mg/dL mg/dL] (06/27/15 3:29 PM) 1Result Comment: Multiply eGFR results by 1.21 for race. Immunizations Vaccine Date Refusal Reason tetanus/diphth/pertuss (Tdap) [...] Extracted from: Title: Office Visit Note Author: Julian Dominguez Date: 06/27/15 Assessment/Plan 1.Atrial flutter Ordered: CBC Hemogram Comprehensive Metabolic Panel Office Visit Level 4 Est 60840 PT 2.Chronic anticoagulation Ordered: Office Visit Level 4 Est 62872 Orders: aspirin, 81 mg 1 tabs, Oral, Daily, # 30 tabs, 0 Refill(s), other reason (Rx) warfarin, 4 mg 2 tabs, Oral, Daily, # 60 tabs, 6 Refill(s), Pharmacy: [facility] #[id number], 2 tabs Oral Daily
--- OUTSIDE RECORDS SUMMARY | 2016-12-10 20:29 | XMS REPORT | Referral Summary ---
Author Author [facility] Organization [facility] Address Unknown Phone Unavailable Care Team Providers Care Instrument Designer Name Role Phone Arti Delacruz Primary Care Physician [phone] Encounter Date(s): 02/12/15 - 02/12/15 [facility] [address] [place] [id number] Discharge Diagnosis: Essential hypertension Discharge [...] Instructions, # 1 Each, 1 Refill(s), Pharmacy: [facility] #[id number], LIFETIME, Supply Start Date: 02/28/14 Status: Ordered [...] Daily, # 60 tabs, 6 Refill(s), Pharmacy: [facility] # [id number], 2 tabs Oral Daily Start Date: 06/27/15 [...] Released: 06/21/2007 Document Revised: 12/05/2012 Document Reviewed: [facility] Patient Information 2014 [employer] [facility]. No follow up information was provided.
--- OUTSIDE RECORDS SUMMARY | 2016-12-10 20:29 | XMS REPORT | Continuity of Care Document ---
Author Author [facility] Organization [facility] Address Unknown Phone Unavailable Allergies Active Description Code Type Severity Reaction Onset Reported/Identified Relationship to Patient Clinical Status Yes meloxicam NKMA N/A Hives 01/23/2014 Medications Problems Procedures Results Encounters ACCT No. Visit Date/Time Discharge Status Pt. Type Provider Facility Loc./Unit Complaint [id number] 10/07/2016 11:10:00 2016 23:59:00 DIS Outpatient Link Batista [facility] New Card 1 year robyn [id number] 09/03/2016 09:11:00 2015 23:59:00 DIS Outpatient Mc Delacruz V [facility] New FM TCPA 6MTH RCK CRMMP [id number] 02/27/2016 10:00:00 2015 23:59:00 DIS Outpatient Mc Delacruz V [facility] New FM 4 month CDM DM [id number] 10/29/2015 08:52:00 2015 23:59:00 DIS Outpatient Mc Delacruz V [facility] New FM CCRMMP [id number] 10/09/2015 10:45:00 2015 23:59:00 DIS Outpatient Link Batista [facility] New Card 3-4 mos robyn [id number] 08/20/2015 09:55:00 2014 23:59:00 DIS Outpatient Mc Delacruz V [facility] New FM 3mth rck cdm dm htn [id number] 07/16/2015 08:54:00 2014 23:59:00 DIS Outpatient Kemar Clark [facility] New Uro annual recheck [id number] 07/03/2015 11:51:00 2014 23:59:00 DIS Outpatient Link Batista [facility] New Card discuss stress test rhythm [id number] 06/27/2015 10:32:00 2014 23:59:59 CLS Outpatient Julian Dominguez [facility] Mur Card COUMADIN EDUCATION [id number] 06/27/2015 09:58:00 2014 23:59:59 CLS Outpatient Link Batista [facility] Mur Card TTM/413.9/414.9/JERI/172.72CM/90.72KG [id number] 06/27/2015 08:42:00 2014 23:59:59 CLS Outpatient Link Batista [facility] Mur Card TTM/413.9/414.9/JERI/90.72KG/172.72CM [id number] 05/29/2015 11:14:00 2014 23:59:00 DIS Outpatient Link Batista [facility] New Card 1 year robyn [id number] 05/17/2015 08:11:00 2014 23:59:00 DIS Outpatient Mc Delacruz V [facility] New FM 3 mth CDM_DM
--- OUTSIDE RECORDS SUMMARY | 2016-12-10 20:29 | XMS REPORT | Referral Summary ---
Author Author [facility] Organization [facility] Address Unknown Phone Unavailable Care Team Providers Care Sewing Machine Operator Paper Bags Name Role Phone Arti Delacruz Primary Care Physician [phone] Encounter Date(s): 02/12/15 - 02/12/15 [facility] [address] [place] [id number] Discharge Diagnosis: Essential hypertension Discharge Diagnosis: Coronary [...] Instructions, # 1 Each, 1 Refill(s), Pharmacy: [facility] #[id number], LIFETIME, Supply Start Date: 02/28/14 Status: Ordered [...] Daily, # 60 tabs, 6 Refill(s), Pharmacy: [facility] # [id number], 2 tabs Oral Daily Start Date: 06/27/15 [...] Released: 06/21/2007 Document Revised: 12/05/2012 Document Reviewed: [facility] Patient Information 2014 [employer] [facility]. No follow up information was provided.
--- OUTSIDE RECORDS SUMMARY | 2016-12-10 20:29 | XMS REPORT | Referral Summary ---
Author Author [facility] Organization [facility] Address Unknown Phone Unavailable Care Team Providers Care Lead Network Engineer Name Role Phone Arti Delacruz Primary Care Physician [phone] Encounter [facility] Date(s): 07/16/15 - 07/16/15 [facility] [address] [place] [address] [place] Ojeda [id number] Discharge Diagnosis: BPH with obstruction/lower urinary [...] Instructions, # 1 Each, 1 Refill(s), Pharmacy: [facility] #[id number], LIFETIME, Supply Start Date: 02/28/14 Status: Ordered [...] # 60 tabs, 6 Refill(s), Pharmacy: [facility] # [id number], 2 tabs Oral Daily Start Date: 06/27/15 [...] Follow Up With: Where: When: Mc Delacruz [address] [place] [address] Drive; [place] [address] Business (1) Within 3 to 5 days Comments: Follow Up With: Where: When: Kemar [address]; [place] [address] Business (1) In 1 year [...] visit. Ordered: Office Visit Level 3 Est 03807
--- OUTSIDE RECORDS SUMMARY | 2016-12-10 20:29 | XMS REPORT | Referral Summary ---
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 Ordered: Office Visit Level 3 Est 38434
--- NOTE | 2016-12-10 20:30 | ERPDOC ---
Departure Disposition Decision Date: Dec 10, 2016 Disposition Decision Time: 21:37 (NYLA DOWELL APRN) Disposition: 01 DISCHARGED HOME, SELF-CARE Impression Impression (NYLA DOWELL APRN) Impression: Primary Impression: Atrial flutter Atrial flutter type: typical Qualified Codes: I48.3 - Typical atrial flutter Severity: Moderate (NYLA DOWELL APRN) Condition: Improved Seen By: Mid-level only (NYLA DOWELL APRN) Referrals: YADIRA SCHMIDT MD (Family) Patient Instructions: Atrial Flutter (ED) Problems/Meds/Labs Reviewed?: Yes Medications reviewed and manag: Yes (NYLA DOWELL APRN) Additional Instructions: Take your prescribe metoprolol when you go home tonight. Call Dr. Batista's office first thing in the morning to make an appointment for tomorrow. Tell them that you were in the ER and we spoke to Dr. Villanueva and he suggested you follow with provider who is seeing Dr. Batista's patient on Wednesday. Follow treatment plan. Follow up care ordered?: Yes Mental Status: Alert, Oriented (NYLA DOWELL APRN) HPI - Cardiac General Chief Complaint: Cardiac Complaint Stated Complaint: WEAKNESS/IRREG HR Time Seen by Provider: 20:27 Source: patient (NYLA DOWELL APRN) Time Seen by Provider: 20:27 (MARINE ARCOS DO) HPI - Cardiac General Initial Comments 81-year-old male brought to ER by [facility] with report of an irregular heartbeat. Patient says that he was mowing the lawn around 1700 today and began to feel that his heat beat was irregular. Patient reports recent being dx. with A-fib and started on warfarin. Patient denies any chest pain, SOA, diaphoresis, nausea, only has a sensation in his chest of irregular heartbeat, Aspirin Today: 81 mg x 1, provided at home Associated Symptoms: DENIES: chest pain, cough, diaphoresis, fever/chills, headaches, loss of appetite, malaise, nausea/vomiting, rash, seizure, shortness of breath, syncope, weakness (NYLA DOWELL APRN) Allergies: Coded Allergies: meloxicam (Verified Allergy, Unknown, 12/10/16) quinapril HCl (Verified Allergy, Unknown, 12/10/16) Past History Past Medical History Metabolic: hypertension, DENIES: diabetes Cardiac: A-fib, CAD Respiratory: DENIES: asthma GI: gallbladder disease, DENIES: ulcers Male: BPH Neurological: DENIES: seizures Musculoskeletal: osteoarthritis Psychological: DENIES: depression (NYLA DOWELL VETERINARY ASSISTANT TECHNICIAN) Surgical History General: appendix, colonoscopy, gallbladder Cardiac: cardiac bypass (NYLA DOWELL VETERINARY ASSISTANT TECHNICIAN) Family History Family PMH: FOUND: other (noncontributory) (NLYA DOWELL VETERINARY ASSISTANT TECHNICIAN) Vaccines Hx Influenza Vaccination: Yes Hx Pneumococcal Vaccination: Yes (NYLA DOWELL VETERINARY ASSISTANT TECHNICIAN) Social History Current Occupational Status: retired (NYLA DOWELL VETERINARY ASSISTANT TECHNICIAN) Review of Systems Constitutional Constitutional: dizziness, see HPI, DENIES: chills, fever, weakness (ELIZABETH DOWELLS A VETERINARY ASSISTANT TECHNICIAN) Eyes General: DENIES: erythema, exudate Lids/Accessories: DENIES: erythema, swelling (NYLA DOWELL VETERINARY ASSISTANT TECHNICIAN) ENMT Ears: DENIES: pain Sinuses: DENIES: congestion, rhinorrhea Mouth/Throat: DENIES: sore throat (ELIZABETH DOWELLS A VETERINARY ASSISTANT TECHNICIAN) Cardiovascular Cardiac: DENIES: chest pain, murmur Rhythm/Rate: irregular beat, see HPI (ELIZABETH DOWELLS A VETERINARY ASSISTANT TECHNICIAN) Pulmonary Respiratory: DENIES: cough, dyspnea (ELIZABETH DOWELLS A VETERINARY ASSISTANT TECHNICIAN) GI Upper Abdomen: DENIES: nausea, pain, vomiting Lower Abdomen: DENIES: diarrhea, pain (ELIZABETH DOWELLS A VETERINARY ASSISTANT TECHNICIAN) General: DENIES: dysuria, pain (ELIZABETH DOWELLS A VETERINARY ASSISTANT TECHNICIAN) Musculoskeletal General: DENIES: joint pain, pain, tenderness (ELIZABETH DOWELLS A VETERINARY ASSISTANT TECHNICIAN) Integumentary Skin: DENIES: color change, itching, rash (ELIZABETH DOWELLS A VETERINARY ASSISTANT TECHNICIAN) Neurological General: DENIES: ataxia, change in strength, numbness, paralysis/paresis, weakness (ELIZABETH DOWELLS A VETERINARY ASSISTANT TECHNICIAN) Psychiatric Psychiatric: DENIES: anxiety, depression, nervousness (ELIZABETH DOWELLS A VETERINARY ASSISTANT TECHNICIAN) Physical Exam General General Nourishment: well nourished, well developed, adult General Body Habitus: well groomed (ELIZABETH DOWELLS A VETERINARY ASSISTANT TECHNICIAN) Vitals and Pain First Documented Vital Signs Date Time Temp Pulse Resp B/P Pulse Ox O2 Delivery O2 Flow Rate FiO2 3/16/17 20:20 98.2 103 18 172/87 97 Room Air ( DO) Vitals and Pain Weight: Kilograms: Height (feet): Height (inches): Triage Pain Scale: (NYLA DOWELL APRN) Eyes (brief) Eyes Brief: found: EOMI (NYLA DOWELL APRN) ENMT (brief) ENMT Brief: FOUND: mucosa moist, NOT FOUND: nasal exudate, nasal swelling ( NYLA DOWELL APRN) Neck (brief) Neck: FOUND: trachea midline, NOT FOUND: adenopathy, thyromegaly (NYLA DOWELL VETERINARY ASSISTANT TECHNICIAN) Respiratory (brief) Respiratory: FOUND: clear all sellers, equal bilaterally, symmetrical (NYLA DOWELL VETERINARY ASSISTANT TECHNICIAN) Cardiovascular Auscultation: FOUND: S1, S2, regular (irregular) Edema : Edema Site: bilateral Edema Location: leg Edema Degree: 0 (NYLA DOWELL APRN) Musculoskeletal (brief) Musculoskeletal Brief: NOT FOUND: deformity, loss of motion (NYLA DOWELL APRN) Integumentary (brief) Integumentary Brief: FOUND: dry, pink, warm (NYLA DOWELL VETERINARY ASSISTANT TECHNICIAN) Neurologic (brief) Neurological Brief: FOUND: motor-no gross deficits, sensory-no gross deficits ( NYLA DOWELL APRN) Psychiatric (brief) Psychiatric Brief: FOUND: alert, normal affect, oriented (NYLA DOWELL APRN ) Differential Diagnoses Considering: Acute IN, Anxiety/Panic, Atrial Fibrillation, Prolonged Qtc, Ventricular Tachycardia (NYLA DOWELL APRN) Progress Results/Orders Orders Procedure Category Date Status Time Cbc W/Auto LAB 12/10/16 Complete Diff-Reflex Manual 20:28 Cmp - Comprehensive LAB 12/10/16 Complete Metabolic 20:28 Probnp LAB 12/10/16 Complete 20:28 Troponin I W LAB 12/10/16 Complete Hemolysis Index 20:28 INR LAB 12/10/16 Complete 20:28 EKG EKG 12/10/16 Taken 20:28 Iv Lock (Ed Only) EDM 12/10/16 Transmitted 20:28 Orthostatic Vitals CHELITA 12/10/16 Complete Signs 21:21 Normal Saline (Ns) PHA 12/10/16 Complete 22:15 ( DO) Lab Results Laboratory Tests Test 12/10/16 20:44 White Blood Count 10.1T/MM3 Red Blood Count 4.74M/MM3 Hemoglobin 15.0GM/DL Hematocrit 43.2% Mean Corpuscular Volume 91.1UM3 Mean Corpuscular Hemoglobin 31.6UUG Mean Corpuscular Hemoglobin Concent 34.7GM/DL RDW Standard Deviation 46.2FL Platelet Count 251T/MM3 Mean Platelet Volume 9.9UM3 Immature Granulocyte % (Auto) 0.2% Neutrophils (%) (Auto) 70.6% Lymphocytes (%) (Auto) 18.9% Monocytes (%) (Auto) 7.9% Eosinophils (%) (Auto) 1.9% Basophils (%) (Auto) 0.5% Absolute Immature Granulocyte (auto 0.02T/MM3 Absolute Neutrophils (auto) 7.1T/MM3 Absolute Lymphocytes (auto) 1.9T/MM3 Absolute Monocytes (auto) 0.8T/MM3 Absolute Eosinophils (auto) 0.2T/MM3 Absolute Basophils (auto) 0.1T/MM3 Prothromb Time International Ratio 2.44 Turbidity < 20 Sodium Level 145MEQ/L Potassium Level 3.6MEQ/L Chloride Level 105MEQ/L Carbon Dioxide Level 25MEQ/L Anion Gap 15MEQ/L Blood Urea Nitrogen 15.0MG/DL Creatinine 1.0MG/DL Glomerular Filtration Rate Calc 72 BUN/Creatinine Ratio 15RATIO Glucose Level 112MG/DL Calculated Osmolality 281MOSM/KG Calcium Level 9.3MG/DL Total Bilirubin 1.00MG/DL Icterus Index < 2 Aspartate Amino Transf (AST/SGOT) 32U/L Alanine Aminotransferase (ALT/SGPT) 30U/L Alkaline Phosphatase 87U/L Troponin I < 0.012ng/ml HA-Dfk-R-Type Natriuretic Peptide 393PG/ML Total Protein 7.6G/DL Albumin 4.4G/DL Globulin 3.2G/DL Albumin/Globulin Ratio 1.4RATIO Chemistry Specimen Hemolysis < 15 () Medications Current ED Medications Sodium Chloride (NS) 500 ml @ 0 mls/hr Q0M ONCE IV Last administered on 22:27; Start 12/10/16 at 22:15; Stop 12/10/16 at 22:16; Status DC () Progress Progress CBC unremarkable NA 145 with slight increase in osmolality, other chemistries unremarkable Troponin normal ProBNP normal for age Inr 2.44 Patient has denied any CP while in the ED, heart rate has decreased between 70s- 80s. Patient remains in a-flutter. I discussed conversation I had with Dr. Villanueva with patient and answered questions regarding EKG and labs. Patient will take his already prescribed metoprolol when he arrives home. Patient verbalized understanding of treatment plan, follow up with Dr. Batista's office tomorrow and return precautions. (NYLA DOWELL APRN) EKG EKG : Rate: 60-100 Rhythm: sinus, other (atrial flutter) QRS: RBBB (incomplete) ST/T: non-specific changes Interpreted by: signing physician (Dr. Arcos) (NYLA DOWELL APRN) Consult/PCP Consult/PCP : Time Called: 21:37 Type of discussion: Phone Consult/PCP Discussion Details I discussed patient's HPI, PMH, VS, labs and exam findings with Dr. Villanueva taking call for Dr. Batista. Dr. Villanueva said he is unfamiliar with patient. He would like patient to follow with whoever is taking call for Dr. Batista in office tomorrow. He is uncomfortable making any medication changes. (NYLA DOWELL APRN) NYLA DOWELL APRN Dec 10, 2016 20:29 JANUARYMARINE DO Dec 11, 2016 05:11
--- OUTSIDE RECORDS SUMMARY | 2016-12-10 20:30 | XMS REPORT | Referral Summary ---
Author Author [facility] Organization [facility] Address Unknown Phone Unavailable Care Team Providers Care Vault Custodian Name Role Phone Arti Delacruz Primary Care Physician [phone] Encounter Date(s): 05/29/15 - 05/29/15 [facility] [address] [place] [address] [place] [address] Discharge Diagnosis: Solar keratosis Discharge Diagnosis: Coronary [...] Instructions, # 1 Each, 1 Refill(s), Pharmacy: [facility] #[id number], LIFETIME, Supply Start Date: 02/28/14 Status: Ordered [...] Daily, # 60 tabs, 6 Refill(s), Pharmacy: [facility] # [id number], 2 tabs Oral Daily Start Date: 06/27/15 [...]
--- OUTSIDE RECORDS SUMMARY | 2016-12-10 20:30 | XMS REPORT | Referral Summary ---
Author Author [facility] Organization [facility] Address Unknown Phone Unavailable Care Team Providers Care Dining Car Hop Name Role Phone Arti Delacruz Primary Care Physician [phone] Encounter Date(s): 02/12/15 - 02/12/15 [facility] [address] [place] [address] Discharge Diagnosis: Essential hypertension Discharge [...] # 1 Each, 1 Refill(s), Pharmacy: [facility] #[id number], LIFETIME, Supply Start Date: 02/28/14 Status: Ordered [...] Daily, # 60 tabs, 6 Refill(s), Pharmacy: [facility] # [id number], 2 tabs Oral Daily Start Date: 06/27/15 [...] Released: 06/21/2007 Document Revised: 12/05/2012 Document Reviewed: [facility] Patient Information 2014 [employer] [facility]. No follow up information was provided.
--- OUTSIDE RECORDS SUMMARY | 2016-12-10 20:30 | XMS REPORT | Referral Summary ---
Author Author [facility] Organization [facility] Address Unknown Phone Unavailable Care Team Providers Care Torch Straightener And Heater Name Role Phone Arti Delacruz Primary Care Physician [phone] Encounter Date(s): 10/29/15 - 10/29/15 [facility] [address] [place] [address] Discharge Diagnosis: DM II (diabetes mellitus, type II), controlled Discharge Diagnosis: Coronary arteriosclerosis Discharge Diagnosis: Mixed hyperlipidemia Discharge Diagnosis: History of chronic urticaria Discharge Diagnosis: BPH with obstruction/lower urinary tract symptoms Discharge Diagnosis: History of colon polyps Discharge Diagnosis: Allergic rhinitis Discharge Diagnosis: Essential hypertension Discharge Diagnosis: Chronic GERD Discharge Disposition: 01-Home or Self Care Attending Physician: Mc Delacruz MD Admitting Physician: Mc Delacruz MD Vital Signs Most recent to 1 oldest [Reference Range]: Temperature Tympanic 36.3 degC [36.6-38.1 degC] *LOW* (10/29/15 8:55 AM) Peripheral Pulse 78 bpm Rate [60-100 bpm] (10/29/15 8:55 AM) Blood Pressure 122/60 mmHg [90-140/60-90 mmHg] (10/29/15 8:55 AM) Problem List Condition Effective Dates Status [...] Instructions, # 1 Each, 1 Refill(s), Pharmacy: [facility] #[id number], [place], Supply Start Date: 02/28/14 Status: Ordered [...] smoker Assessment and Plan Extracted from: Title: CDM/DM, CRMMP Author: Mc Delacruz MD Date: 10/29/15 Assessment/Plan Allergic rhinitis BPH with obstruction/lower urinary tract symptoms Chronic GERD Coronary arteriosclerosis DM II (diabetes mellitus, type II), controlled Essential hypertension History of chronic urticaria History of colon polyps Mixed hyperlipidemia Need for vaccination Overall he seems to be doing well and we will continue current medications. Update vaccinations with Prevnar and Tdap today. Follow-up planned in about 4 months (to coincide with his 's appointment). Labs anticipated at that visit to include A1c and BMP.
--- OUTSIDE RECORDS SUMMARY | 2016-12-10 20:30 | XMS REPORT | Referral Summary ---
Author Author [facility] Organization [facility] Address Unknown Phone Unavailable Care Team Providers Care Electrical Instrument Maker Name Role Phone Arti Delacruz Primary Care Physician [phone] Encounter [facility] [id number] Date(s): 06/27/15 - 06/27/15 [facility] [address] [place] [address] Discharge Diagnosis: Atrial flutter Discharge Diagnosis: [...] Instructions, # 1 Each, 1 Refill(s), Pharmacy: [facility] #[id number], [place]IF[place], Supply Start Date: 02/28/14 Status: Ordered [...] Daily, # 60 tabs, 6 Refill(s), Pharmacy: [facility] # [id number], 2 tabs Oral Daily Start Date: 06/27/15 [...] Metabolic Panel Office Visit Level 4 Est 48790 PT 2.Chronic anticoagulation Ordered: Office Visit Level 4 Est 78462 Orders: aspirin, 81 mg 1 tabs, Oral, Daily, # 30 tabs, 0 Refill(s), other reason (Rx) warfarin, 4 mg 2 tabs, Oral, Daily, # 60 tabs, 6 Refill(s), Pharmacy: [facility] #[id number], 2 tabs Oral Daily
--- OUTSIDE RECORDS SUMMARY | 2016-12-10 20:30 | XMS REPORT | Referral Summary ---
Author Author [facility] Organization [facility] Address Unknown Phone Unavailable Care Team Providers Care Virtual Office Assistant Name Role Phone Arti Delacruz Primary Care Physician [phone] Encounter Date(s): 02/12/15 - 02/12/15 [facility] [address] [place] [address] Discharge Diagnosis: Essential hypertension [...] Instructions, # 1 Each, 1 Refill(s), Pharmacy: [facility] #[id number], [place], Supply Start Date: 02/28/14 Status: Ordered [...] Daily, # 60 tabs, 6 Refill(s), Pharmacy: [facility] # [id number], 2 tabs Oral Daily Start Date: 06/27/15 [...] Released: 06/21/2007 Document Revised: 12/05/2012 Document Reviewed: [facility] Patient Information 2014 [employer] [facility]. No follow up information was provided.
--- OUTSIDE RECORDS SUMMARY | 2016-12-10 20:30 | XMS REPORT | Referral Summary ---
Author Author [facility] Organization [facility] Address Unknown Phone Unavailable Care Team Providers Care Director Of Sports Medicine Name Role Phone Arti Delacruz Primary Care Physician [phone] Encounter Date(s): 10/07/16 - 10/07/16 [facility] [address] [place] [address] [place] [id number] Discharge Diagnosis: Hypercholesteremia Discharge Diagnosis: Atrial flutter Discharge Diagnosis: Essential hypertension Discharge Diagnosis: Coronary heart disease Discharge Disposition: 01-Home or Self Care Attending Physician: Link Batista MD Admitting Physician: Link Batista MD Referring Physician: Mc Delacruz MD Vital Signs Most recent to 1 oldest [Reference Range]: Peripheral Pulse 74 bpm Rate [60-100 bpm] (10/07/16 11:58 AM) Blood Pressure 122/60 mmHg [90-140/60-90 mmHg] (10/07/16 11:58 AM) Problem List Condition Effective Dates Status Health Status Informant Hay fever(Confirmed) < 05/09/14 Resolved Atrial Active flutter(Confirmed) Atrial Active flutter(Confirmed) 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) Angina/chest < 05/09/14 Resolved pain(Confirmed) Coronary Active arteriosclerosis (disorder)(Confirmed ) Coronary artery < 05/09/14 Resolved disease(Confirmed) Diabetes(Confirmed) < 05/09/14 Resolved Essential Active hypertension (disorder)(Confirmed ) Esophageal < 05/09/14 Resolved reflux(Confirmed) History of < 05/09/14 Resolved measles(Confirmed) History of chronic Active urticaria(Confirmed) Hearing problem Active (finding)(Confirmed) History of colon Active polyps(Confirmed) Hypercholesteremia(C Active onfirmed) Hypertension(Confirm < 05/09/14 Resolved ed) Mixed Active hyperlipidemia(Confi rmed) Obesity(Confirmed) Active patient Prostatism(Confirmed < 05/09/14 Resolved ) Pure Resolved hypercholesterolemia (disorder)(Confirmed ) Allergic Active rhinitis(Confirmed) DM II (diabetes Active mellitus, type II), controlled(Confirmed ) Chicken < 10/29/15 Resolved pox(Confirmed) Allergies, Adverse Reactions, Alerts Substance Reaction Severity Status meloxicam Hives Active Medications amLODIPine 10 mg oral tablet See Instructions, Take 1/2 tablet by mouth daily, # 45 tabs, 1 Refill(s), eRx : [facility] Start Date: 09/29/16 Status: Ordered aspirin 81 mg oral tablet 81 mg 1 tabs, Oral, Daily, # 30 tabs, 0 Refill(s), other reason (Rx) Start Date: 06/27/15 Status: Ordered Claritin 10 mg, Oral, Daily, as needed for allergy symptoms, 0 Refill(s) Start Date: 05/10/14 Status: Ordered finasteride 5 mg oral tablet See Instructions, Take 1 tablet by mouth at bedtime, # 90 tabs, 1 Refill(s), Pharmacy: [facility], Take 1 tablet by mouth at bedtime Start Date: 09/24/16 Status: Ordered Fish Oil 1000 mg oral capsule 1 caps, Oral, Daily, 0 Refill(s) Start Date: 05/10/14 Status: Ordered Glucometer strips (DME) DME Item [facility], See Instructions, # 1 Each, 1 Refill(s), Pharmacy: [facility] #[id number], [place], Supply Start Date: 02/28/14 Status: Ordered hydrochlorothiazide 25 mg oral tablet See Instructions, Take 1 tablet by mouth daily, # 90 tabs, eRx: [facility], Take 1 tablet by mouth daily Start Date: 07/29/16 Status: Ordered Metoprolol Tartrate 25 mg oral tablet See Instructions, Take 1 tablet by mouth twice a day, # 180 tabs, eRx: [facility], Take 1 tablet by mouth twice a day Start Date: 07/29/16 Status: Ordered multivitamin Daily, 0 Refill(s) Start Date: 05/10/14 Status: Ordered Niaspan ER 500 mg oral tablet, extended release 1 tabs, Oral, Bedtime (once a day), 0 Refill(s) Start Date: 05/10/14 Status: Ordered Niaspan ER 500 mg oral tablet, extended release See Instructions, Take 2 tablets by mouth daily, # 180 tabs, 1 Refill(s), Pharmacy: [facility], Take 2 tablets by mouth daily Start Date: 09/24/16 Status: Ordered pravastatin 40 mg oral tablet See Instructions, Take 1 tablet by mouth every day, # 90 tabs, eRx: [facility] Start Date: 09/29/16 Status: Ordered terazosin 1 mg oral capsule See Instructions, Take 1 capsule by mouth at bedtime, # 90 caps, 1 Refill(s), Pharmacy: [facility], Take 1 capsule by mouth at bedtime Start Date: 09/24/16 Status: Ordered warfarin 2 mg oral tablet See Instructions, Take 2 tablets by mouth daily, # 180 tabs, eRx: [facility], Take 2 tablets by mouth daily Start Date: 07/29/16 Status: Ordered Zantac 150 150 mg, Oral, Daily, Abdominal Cramping, 0 Refill(s) Start Date: 05/10/14 Status: Ordered Results No data available for this section Immunizations Given and Recorded Vaccine Date Status Refusal Reason tetanus/diphth/pertuss (Tdap) adult/adol 10/29/15 Given influenza virus vaccine, inactivated 08/20/15 Given influenza virus vaccine, live 07/04/12 Given pneumococcal 13-valent conjugate vaccine 10/29/15 Given pneumococcal 13-valent conjugate vaccine 07/11/02 Recorded tetanus-diphth toxoids (Td) adult/adol 02/27/05 Recorded Procedures Procedure Date Related Diagnosis Body Site [...] Visit Note Author: Link Batista MD Date: 10/07/16 Assessment/Plan 1.Atrial flutter 2.Coronary heart disease 3.Hypercholesteremia 4.Essential hypertension Overall, the patient appears very stable and I didn't make any changes in his therapy. He doesn't appear to be at all restricted Talha suggested that he consider some activity or engagement togain some sense of accomplishment or achievement. He is to see me in 6-12 months or any time as necessary.
--- OUTSIDE RECORDS SUMMARY | 2016-12-10 20:30 | XMS REPORT | Referral Summary ---
Author Author [facility] Organization [facility] Address Unknown Phone Unavailable Care Team Providers Care Employee Benefits Manager Name Role Phone Arti Delacruz Primary Care Physician [phone] Encounter [facility] Date(s): 07/16/15 - 07/16/15 [facility] [address] [place] [address] [place] [id number] Discharge Diagnosis: BPH with obstruction/lower [...] # 1 Each, 1 Refill(s), Pharmacy: [facility] #[id number], [place], Supply Start Date: 02/28/14 Status: Ordered [...] # 60 tabs, 6 Refill(s), Pharmacy: [facility] # [id number], 2 tabs Oral Daily Start Date: 06/27/15 [...] Follow Up With: Where: When: Mc Delacruz [address] [place] [address] Drive; [place] [address] Business (1) Within 3 to 5 days Comments: Follow Up With: Where: When: Kemar Michel[address]; [place] [address] Business (1) In 1 year [...] visit. Ordered: Office Visit Level 3 Est 40668
--- OUTSIDE RECORDS SUMMARY | 2016-12-10 20:30 | XMS REPORT | Referral Summary ---
Author Author [facility] Organization [facility] Address Unknown Phone Unavailable Care Team Providers Care Rn Clinical Coordinator Name Role Phone Arti Delacruz Primary Care Physician [phone] Encounter Date(s): 05/29/15 - 05/29/15 [facility] [address] [place] [address] [place] [address] Discharge Diagnosis: Solar keratosis Discharge Diagnosis: Coronary [...] Instructions, # 1 Each, 1 Refill(s), Pharmacy: [facility] #[id number], [place], Supply Start Date: 02/28/14 Status: Ordered [...] Daily, # 60 tabs, 6 Refill(s), Pharmacy: [facility] # [id number], 2 tabs Oral Daily Start Date: 06/27/15 [...]
--- OUTSIDE RECORDS SUMMARY | 2016-12-10 20:30 | XMS REPORT | Referral Summary ---
Author Author [facility] Organization [facility] Address Unknown Phone Unavailable Care Team Providers Care Paint Factory Worker Name Role Phone Arti Delacruz Primary Care Physician [phone] Encounter Date(s): 06/27/15 - 06/27/15 [facility] [address] [place] [address] Discharge Disposition: 01-Home or Self Care [...] Instructions, # 1 Each, 1 Refill(s), Pharmacy: [facility] #[id number], [place], Supply Start Date: 02/28/14 Status: Ordered [...] Daily, # 60 tabs, 6 Refill(s), Pharmacy: [facility] # [id number], 2 tabs Oral Daily Start Date: 06/27/15 [...]
--- OUTSIDE RECORDS SUMMARY | 2016-12-10 20:30 | XMS REPORT | Referral Summary ---
Author Author [facility] Organization [facility] Address Unknown Phone Unavailable Care Team Providers Care Volcanology Professor Name Role Phone Arti Delacruz Primary Care Physician [phone] Encounter [facility] [id number] Date(s): 09/03/16 - 09/03/16 [facility] Family [address] [place] [address] Discharge Diagnosis: Essential hypertension Discharge Diagnosis: Mixed hyperlipidemia Discharge Diagnosis: Chronic GERD Discharge Diagnosis: History of chronic urticaria Discharge Diagnosis: Allergic rhinitis Discharge Diagnosis: DM II (diabetes mellitus, type II), controlled Discharge Diagnosis: Atrial flutter Discharge Diagnosis: BPH with obstruction/lower urinary tract symptoms Discharge Diagnosis: History of colon polyps Discharge Diagnosis: Coronary arteriosclerosis Discharge Disposition: 01-Home or Self Care Attending Physician: Mc Delacruz MD Admitting Physician: Mc Delacruz MD Vital Signs Most recent to 1 oldest [Reference Range]: Peripheral Pulse 64 bpm Rate [60-100 bpm] (09/03/16 9:15 AM) Respiratory Rate 18 br/min [14-20 br/min] (09/03/16 9:15 AM) Blood Pressure 132/62 mmHg [90-140/60-90 mmHg] (09/03/16 9:15 AM) SpO2 95 % (09/03/16 9:15 AM) Problem List Condition Effective Dates Status [...] Active (finding)(Confirmed) History of colon Active polyps(Confirmed) Hypertension(Confirm < 05/09/14 Resolved ed) Mixed Active [...] Refill(s), eRx : [facility], Take 1/2 tablet by mouth daily Start Date: 03/03/16 Status: Ordered aspirin 81 mg oral tablet [...] tablet by mouth at bedtime Start Date: 03/03/16 Status: Ordered Fish Oil 1000 mg oral capsule 1 caps, Oral, Daily, 0 Refill(s) Start Date: 05/10/14 Status: Ordered Glucometer strips (DME) DME Item [facility], See Instructions, # 1 Each, 1 Refill(s), Pharmacy: [facility] #[id number], [place], Supply Start Date: 02/28/14 Status: Ordered [...] 0 Refill(s) Start Date: 05/10/14 Status: Ordered pravastatin 40 mg oral tablet See Instructions, Take 1 tablet by mouth every day, # 90 tabs, eRx: [facility], Take 1 tablet by mouth every day Start Date: 06/30/16 Status: Ordered terazosin 1 mg oral capsule See Instructions, Take 1 capsule by mouth at bedtime, # 90 caps, 1 Refill(s), eRx: [facility], Take 1 capsule by mouth at bedtime Start Date: 03/03/16 Status: Ordered warfarin 2 mg oral tablet [...] live 07/04/12 pneumococcal 13-valent conjugate vaccine 10/29/15 pneumococcal 13-valent conjugate vaccine 07/11/02 tetanus-diphth toxoids (Td) adult/adol 02/27/05 Procedures Procedure Date Related Diagnosis Body Site Colonoscopies 2010 WNL 2006 WNL, REPEAT 5YRS. 07/22/11 2003-TUB ADENOMA, REPEAT 2 YRS. cataract left 2010 cataract right 2010 HERNIA 2002 GALL BLADDER W/STONES 1982 Vasectomy 1972 Appendectomy 1963 cardiac bypass 3 vessels Social History Social History Type Response Smoking Status Never smoker Assessment and Plan Extracted from: Title: CRMMP Author: Mc Delacruz MD Date: 09/03/16 Assessment/Plan Overall he seems to be stable and doing well. We will continue current medications. Plan follow-up in 6 months with labs at that time to include fasting lipids and A1c. 1.BPH with obstruction/lower urinary tract symptoms 2.DM II (diabetes mellitus, type II), controlled Ordered: Hemoglobin A1c 3.Essential hypertension 4.Mixed hyperlipidemia 5.Allergic rhinitis 6.Chronic GERD 7.History of chronic urticaria 8.History of colon polyps 9.Coronary arteriosclerosis 10.Atrial flutter
--- OUTSIDE RECORDS SUMMARY | 2016-12-10 20:30 | XMS REPORT | Referral Summary ---
Author Author [facility] Organization [facility] Address Unknown Phone Unavailable Care Team Providers Care Heavy Duty Mechanic Name Role Phone Arti Delacruz Primary Care Physician [phone] Encounter Date(s): 08/20/15 - 08/20/15 [facility] [address] [place] [address] Discharge Diagnosis: Mixed hyperlipidemia Discharge Diagnosis: H/O atrial flutter Discharge Diagnosis: Essential hypertension Discharge Diagnosis: Chronic anticoagulation Discharge Diagnosis: Type II diabetes mellitus, well controlled Discharge Diagnosis: Coronary arteriosclerosis Discharge Disposition: 01-Home or Self Care Attending Physician: Mc Delacruz MD Vital Signs Most recent to 1 oldest [Reference Range]: Peripheral Pulse 78 bpm Rate [60-100 bpm] (08/20/15 10:31 AM) Blood Pressure 122/60 mmHg [90-140/60-90 mmHg] (08/20/15 10:31 AM) Problem List Condition Effective Dates Status [...] Instructions, # 1 Each, 1 Refill(s), Pharmacy: [facility] #[id number], [place], Supply Start Date: 02/28/14 Status: Ordered [...] Daily, # 60 tabs, 6 Refill(s), Pharmacy: [facility] # [id number], 2 tabs Oral Daily Start Date: 06/27/15 [...] smoker Assessment and Plan Extracted from: Title: CDM/DM Author: Mc Delacruz MD Date: 08/20/15 Assessment/Plan Chronic anticoagulation Coronary arteriosclerosis Essential hypertension H/O atrial flutter Need for influenza vaccination Type II diabetes mellitus, well controlled Overall stable/continue present care. Follow-up 3 months with labs at that time to include lipids and A1c.
--- OUTSIDE RECORDS SUMMARY | 2016-12-10 20:30 | XMS REPORT | Referral Summary ---
Author Author [facility] Organization [facility] Address Unknown Phone Unavailable Care Team Providers Care Food Cashier Name Role Phone Arti Delacruz Primary Care Physician [phone] Encounter [facility] Date(s): 06/27/15 - 06/27/15 [facility] [address] [place] [address] Discharge Disposition: 01-Home or Self Care Attending [...] Pharmacy: [facility] #[id number], [place]IF[place], Supply Start Date: 02/28/14 Status: Ordered [...] Daily, # 180 tabs, 3 Refill(s), Pharmacy: [facility], 2 tabs Oral Daily Start [...]
--- OUTSIDE RECORDS SUMMARY | 2016-12-10 20:33 | XMS REPORT | Continuity of Care Document ---
Author Author [facility] Organization [facility] Address Unknown Phone Unavailable Allergies Active Description Code Type Severity Reaction Onset Reported/Identified Relationship to Patient Clinical Status Yes meloxicam NKMA N/A Hives 01/23/2014 Medications Problems Procedures Results Encounters ACCT No. Visit Date/Time Discharge Status Pt. Type Provider Facility Loc./Unit Complaint [id number] 10/07/2016 11:10:00 2016 23:59:00 DIS Outpatient Link Batista [facility] New Card 1 year robyn [id number] 09/03/2016 09:11:00 2015 23:59:00 DIS Outpatient Mc Delacruz V [facility] New FM TCPA 6MTH RCK CRMMP [id number] 02/27/2016 10:00:00 2015 23:59:00 DIS Outpatient Mc Delacruz V [facility] New FM 4 month CDM DM [id number] 10/29/2015 08:52:00 2015 23:59:00 DIS Outpatient Mc Delacruz V [facility] New FM CCRMMP [id number] 10/09/2015 10:45:00 2015 23:59:00 DIS Outpatient Link Batista [facility] New Card 3-4 mos robyn [id number] 08/20/2015 09:55:00 2014 23:59:00 DIS Outpatient Mc Delacruz V [facility] New FM 3mth rck cdm dm htn [id number] 07/16/2015 08:54:00 2014 23:59:00 DIS Outpatient Kemar Clark [facility] New Uro annual recheck [id number] 07/03/2015 11:51:00 2014 23:59:00 DIS Outpatient Link Batista [facility] New Card discuss stress test rhythm [id number] 06/27/2015 10:32:00 2014 23:59:59 CLS Outpatient Julian Dominguez [facility] Mur Card COUMADIN EDUCATION [id number] 06/27/2015 09:58:00 2014 23:59:59 CLS Outpatient Link Batista [facility] Mur Card TTM/413.9/414.9/JERI/172.72CM/90.72KG [id number] 06/27/2015 08:42:00 2014 23:59:59 CLS Outpatient Link Batista [facility] Mur Card TTM/413.9/414.9/JERI/90.72KG/172.72CM [id number] 05/29/2015 11:14:00 2014 23:59:00 DIS Outpatient Link Batista [facility] New Card 1 year robyn [id number] 05/17/2015 08:11:00 2014 23:59:00 DIS Outpatient Mc Delacruz V [facility] New FM 3 mth CDM_DM
[2016-12-10] MEDS ORDERED: NIAC-9 PO (20:46)
[2016-12-10] MEDS ORDERED: METO25TA6 PO (20:46)
[2016-12-10] MEDS ORDERED: WARF2TAB6 PO ×2 (20:46→21:02)
[2016-12-10 20:49] LABS: BASOPHILS # (AUTO) 0.1 T/MM3 (0-0.2); BASOPHILS % (AUTO) 0.5 % (0-2); EOSINOPHILS # (AUTO) 0.2 T/MM3 (0-0.5); EOSINOPHILS % (AUTO) 1.9 % (0-4); HCT - HEMATOCRIT 43.2 % (41-53); IMMATURE GRANULOCYTE # (AUTO) 0.02 T/MM3 (0.00-0.03); IMMATURE GRANULOCYTE % (AUTO) 0.2 % (0.0-0.5); LYMPHOCYTES # (AUTO) 1.9 T/MM3 (1-4.8); LYMPHOCYTES % (AUTO) 18.9 % (23-45); MEAN CORPUSCULAR HGB 31.6 UUG (26-34); MEAN CORPUSCULAR HGB CONC(MCHC 34.7 GM/DL (31-37); MEAN CORPUSCULAR VOLUME 91.1 UM3 (80-100); MEAN PLATELET VOLUME 9.9 UM3 (9.4-12.4); MONOCYTES # (AUTO) 0.8 T/MM3 (0-0.8); MONOCYTES % (AUTO) 7.9 % (0-9.0); NEUTROPHILS #(AUTO)-ABSOLUTE 7.1 T/MM3 (1.8-7.7); NEUTROPHILS % (AUTO) 70.6 % (33-66); RED BLOOD COUNT 4.74 M/MM3 (4.50-5.90); WBC - WHITE BLOOD COUNT 10.1 T/MM3 (4.5-11.0)
[2016-12-10 21:00] LABS: ALBUMIN 4.4 G/DL (3.5-5.0); ALBUMIN/GLOBULIN RATIO 1.4 RATIO (1.1-2.2); ALKALINE PHOSPHATASE 87 U/L (38-126); ALT (SGPT) 30 U/L (21-72); ANION GAP 15 MEQ/L (5-15); AST (SGOT) 32 U/L (17-59); BUN/CREATININE RATIO 15 RATIO (6-26); CALCIUM 9.3 MG/DL (8.4-10.2); CHLORIDE 105 MEQ/L (98-107); CO2 - CARBON DIOXIDE 25 MEQ/L (22-30); GLOMERULAR FILTRATION RATE 72; GLUCOSE 112 MG/DL (75-110); POTASSIUM 3.6 MEQ/L (3.6-5); SODIUM 145 MEQ/L (134-144); TOTAL PROTEIN 7.6 G/DL (6.3-8.2)
[2016-12-10] MEDS ORDERED: ASPI81TA2 PO (21:04)
[2016-12-10 21:11] LABS: PROBNP 393 PG/ML (0-175)
[2016-12-10 21:12] LABS: INR 2.44 (0.76-1.04); PROTHROMBIN TIME 26.6 SEC (9.31-12.49)
[2016-12-10] MEDS ORDERED: NORMAL SALINE 500 ML IV ONE (22:15)
[2016-12-10 23:23] VITALS: BP 145/68; PULSE 87; RESP 18; TEMP 98.2; O2SAT 94
--- NOTE | 2016-12-10 23:23 | NUR ---
DEPART PT AND SPOUSE GIVEN DI FOR ATRIAL FLUTTER AND F/U. BOTH VERBALIZE UNDERSTANDING. QUESTIONS ASKED/ANSWERED - DENY FURTHER QUESTIONS/NEEDS AT THIS TIME. DENIES PAIN AT THIS TIME. DENIES NAUSEA AT THIS TIME. IV SITE REMOVED. PERSONAL BELONGINGS GATHERED. PT AMBULATED/ESCORTED TO ED EXIT - GAIT STABLE, NO SIGN OF DISTRESS.
== END 2016-12-10 23:23 | disposition home or self-care (01) ==
LOC: ED 20:16
DX: I48.3 Typical atrial flutter (principal); Z79.01 Long term (current) use of anticoagulants; I48.91 Unspecified atrial fibrillation; I10 Essential (primary) hypertension
CPT/HCPCS: 80053; 83880; 84484; 85025; 85610; 93005